=== PATIENT | female | born 1965 | race African-American/Black ===

== ENCOUNTER → 2017-06-24 | Outpatient (CLI) | payer BC ==
--- NOTE | 2017-06-28 08:18 | MM ---
Reason for exam: screening (asymptomatic). Last mammogram was performed 1 year ago. History: Patient is postmenopausal. Physical Findings: A clinical breast exam by your physician is recommended on an annual basis and results should be correlated with mammographic findings. MG 3D Screening Mammo W/Cad Bilateral CC and MLO view(s) were taken. Prior study comparison: June 09, 2016, bilateral MG screening mammo w CAD. The breast tissue is heterogeneously dense. This may lower the sensitivity of mammography. No significant changes when compared with prior studies. ASSESSMENT: Benign, BI-RAD 2 RECOMMENDATION: Routine screening mammogram of both breasts in 1 year.
== END | disposition home or self-care (01) ==
LOC: RADMAMWWP 07:14
PROVIDERS: ATTEND Obstetrics & Gynecology
DX: Z12.31 Encounter for screening mammogram for malignant neoplasm of breast (principal)
CPT/HCPCS: 77063; G0202

== ENCOUNTER → 2017-07-06 | Outpatient (CLI) | payer BC ==
--- NOTE | 2017-07-06 17:02 | XR ---
EXAMINATION TYPE: XR lumbosacral spine min 4V DATE OF EXAM: 07/06/2017 COMPARISON: NONE HISTORY: Back pain TECHNIQUE: 5 views FINDINGS: Vertebra have normal spacing and alignment. Posterior elements are intact. Sacroiliac joint s appear normal. There is no sign of compression fracture. IMPRESSION: Negative lumbar spine exam.
== END | disposition home or self-care (01) ==
LOC: RADXRMAIN 16:39
PROVIDERS: ATTEND Family Medicine
DX: M54.16 Radiculopathy, lumbar region (principal)
CPT/HCPCS: 72110

== ENCOUNTER → 2017-07-08 | Outpatient (CLI) | payer BC ==
--- NOTE | 2017-07-08 16:00 | ECHOS ---
STRESS ECHOCARDIOGRAM Date of Service: 07/08/2017 RESTING HEART RATE: 98 RESTING BLOOD PRESSURE: 129/81 MAXIMUM HEART RATE: 154 MAXIMUM BLOOD PRESSURE: 127/64 85% MPHR: 141 100% MPHR: 166 MAXIMUM STAGE REACHED: 3 TOTAL EXERCISE TIME: 7:00 METS ACHIEVED: 8.5 Mrs. Mo is a 52-year-old female being evaluated with symptoms of chest pain and palpitation and also family history. Baseline EKG showed a sinus rhythm with normal UT interval and QRS duration. Blood pressure at rest is 129/81 with pulse rate of 98. Patient walked on the Leonel protocol for 7 minutes achieving a maximum heart rate of 154 with a blood pressure of 127/64. EKG's taken during and after exercise showed mild upsloping ST segments in inferolateral leads up to about 1/2 to 1 mm. These changes were not associated with any chest pain. ECHO DATA: Baseline echo images show normal wall motion and thickening. Exercise echo images show augmentation of the wall motion and thickening in all the segments. FINAL IMPRESSION: 1. Borderline positive stress test based on the EKG abnormalities. 2. Negative stress echo. MMODL / IJN: [id number] /
== END | disposition home or self-care (01) ==
LOC: RADNMMAIN 09:06
PROVIDERS: ATTEND Family Medicine
DX: R07.9 Chest pain, unspecified (principal)
CPT/HCPCS: 93017; 93350

== ENCOUNTER → 2017-10-27 | Outpatient (CLI) | payer BC ==
--- NOTE | 2017-10-27 08:58 | US ---
EXAMINATION TYPE: US thyroid st tissue head/neck DATE OF EXAM: 10/27/2017 COMPARISON: CT neck October 08, 2017 CLINICAL HISTORY: R22.1 Localized Swelling, Mass And Lump, Neck. At area of right parotid gland is a mixed echogenicity, irregular shaped 1.4 x 1.0 x 1.1cm mass with no vascularity. Impression: Suspicious hypoechoic nodule deep in left parotid gland is not as well seen on CT due to dental artifact. Does not have ultrasound appearance of benign lymph node. Neoplasm cannot be exclude d. Consider further investigation with ultrasound guided fine-needle aspiration.
== END ==
LOC: RADUSWWP 08:12
PROVIDERS: ATTEND Family Medicine
DX: R22.1 Localized swelling, mass and lump, neck (principal)
CPT/HCPCS: 76536

== ENCOUNTER 2017-11-29 08:56 | Day surgery (SDC) | payer BC ==
[2017-11-29] MEDS ORDERED: ALPRAZolam 0.5 MG TAB PO STA (09:32)
[2017-11-29 10:14] VITALS: RESP 16; TEMP 97.8
[2017-11-29 11:01] VITALS: BP 132/70; PULSE 98
--- NOTE | 2017-11-29 11:40 | US ---
EXAMINATION TYPE: US fine needle aspiration DATE OF EXAM: 11/29/2017 COMPARISON: NONE HISTORY: Parotid nodule. Maximal barrier technique was utilized. After informed consent, skin overlying the lesion was locali zed with ultrasound and the overlying skin prepped and draped. Ultrasound was utilized using sterile technique. Lidocaine was used for local anesthesia. 3 passes with a 25-gauge needle were made into t he nodule and aspirated specimen was submitted to cytology. Following the procedure hemostasis achie halie. No immediate complication. The patient discharged in stable condition. IMPRESSION: STATUS POST ULTRASOUND GUIDED FINE NEEDLE ASPIRATION OF PAROTID NODULE, PATHOLOGY IS PEND ING. THIS PROCEDURE WAS PERFORMED BY THE UNDERSIGNED.
== END 2017-11-29 10:50 | disposition home or self-care (01) ==
LOC: RADPROMAIN 08:56
PROVIDERS: ATTEND Otolaryngology
DX: K11.8 Other diseases of salivary glands (principal)
CPT/HCPCS: 10022; 76942; 88173; 88305

== ENCOUNTER → 2018-07-04 | Outpatient (CLI) | payer BC ==
--- NOTE | 2018-07-04 14:45 | BD ---
EXAMINATION TYPE: Axial Bone Density DATE OF EXAM: 07/04/2018 COMPARISON: 2014 CLINICAL HISTORY: post menopausal Height: 5'1 Weight: 115 FRAX RISK QUESTIONS: Family History (Parent hip fracture): y Secondary Osteoporosis: RISK FACTORS HISTORY OF: Postmenopausal woman: y MEDICATIONS: Additional Medications: Sjogren syndrome Additional History: EXAM MEASUREMENTS: Bone mineral densitometry was performed using the [employer] System. Bone mineral density as measured about the Lumbar spine is: ----- L1-L4(G/cm2): 1.200 T Score Values are as follows: ----- L2: -0.1 ----- L3: 0.2 ----- L4: 0.3 ----- L1-L4: 0.2 Bone mineral density has: Decreased -0.3% since study of: 05/06/2015 Bone mineral density about the R hip (g/cm2): 0.837 Bone mineral density about the L hip (g/cm2): 0.954 T Score values are as follows: -----R Neck: -1.4 -----L Neck: -0.6 -----R Total: -0.8 -----L Total: -0.2 Bone mineral density has: Decreased -5.4% since study of: 05/06/2015 IMPRESSION: negative NOTE: T-SCORE=SD OF THE YOUNG ADULT MEAN.
--- NOTE | 2018-07-06 09:49 | MM ---
Reason for exam: screening (asymptomatic). Last mammogram was performed 1 year ago. History: Patient is postmenopausal. Physical Findings: A clinical breast exam by your physician is recommended on an annual basis and results should be correlated with mammographic findings. MG 3D Screening Mammo W/Cad Bilateral CC and MLO view(s) were taken. Prior study comparison: June 24, 2017, bilateral MG 3d screening mammo w/cad. June 22, 2016, right breast MG 3d work up w/cad RT. The breast tissue is heterogeneously dense. This may lower the sensitivity of mammography. Medial anterior left breast asymmetric density incompletely disperses on 3D image. ASSESSMENT: Incomplete: need additional imaging evaluation, BI-RAD 0 RECOMMENDATION: Special view mammogram of the left breast. If lesion persists on supplemental views, image directed ultrasound is recommended. [facility] will attempt to contact patient to return for supplemental views and ultrasound if indicated.
== END | disposition home or self-care (01) ==
LOC: RADBDWWP 07:19
PROVIDERS: ATTEND Family Medicine
DX: Z12.31 Encounter for screening mammogram for malignant neoplasm of breast (principal); Z13.820 Encounter for screening for osteoporosis; Z78.0 Asymptomatic menopausal state
CPT/HCPCS: 77063; 77067; 77080

== ENCOUNTER → 2019-07-31 | Outpatient (CLI) | payer BC ==
--- NOTE | 2019-07-31 14:37 | MM ---
Reason for exam: screening (asymptomatic). Last mammogram was performed 1 year and 1 month ago. History: Patient is postmenopausal. Physical Findings: A clinical breast exam by your physician is recommended on an annual basis and results should be correlated with mammographic findings. MG Screening Mammo w CAD Bilateral CC and MLO view(s) were taken. Prior study comparison: July 15, 2018, left breast MG 3d work up w/cad LT. July 04, 2018, bilateral MG 3d screening mammo w/cad. The breast tissue is heterogeneously dense. This may lower the sensitivity of mammography. Focal asymmetry left inner CC view, stable. No significant changes when compared with prior studies. ASSESSMENT: Benign, BI-RAD 2 RECOMMENDATION: Routine screening mammogram of both breasts in 1 year.
== END ==
LOC: RADMAMWWP 07:30
PROVIDERS: ATTEND Family Medicine
DX: Z12.31 Encounter for screening mammogram for malignant neoplasm of breast (principal)
CPT/HCPCS: 77067

== ENCOUNTER → 2019-11-22 | Outpatient (CLI) | payer BC ==
--- NOTE | 2019-11-22 15:43 | XR ---
Right wrist HISTORY: Pain for 3 weeks 4 views of the right wrist Bone mineralization, joint spaces and alignment are maintained. No fracture or dislocation. Question soft tissue swelling. IMPRESSION: No acute bone abnormality. Wrist MRI may be of benefit for persistent symptoms.
== END | disposition home or self-care (01) ==
LOC: RAD 12:37
PROVIDERS: ATTEND Family Medicine
DX: S63.501A Unspecified sprain of right wrist, initial encounter (principal)

== ENCOUNTER → 2020-07-24 | Outpatient (CLI) | payer BC ==
--- NOTE | 2020-07-24 08:21 | CT ---
EXAMINATION TYPE: CT brain wo/w con DATE OF EXAM: 07/24/2020 COMPARISON: CT brain December 09, 2016. HISTORY: [place] CT DLP: 1784.2 mGycm Automated exposure control for dose reduction was used. CONTRAST: CT scan of the head is performed without and with IV Contrast, patient injected with 100 mL of Isovue 300. FINDINGS: Noncontrast images show no acute intracranial hemorrhage or midline shift. The ventricles and sulci are within normal limits in size. Boyd-white matter differentiation is maintained. There is hypoplastic right frontal sinus. The globes are intact and the visualized sinuses are clear. Postcon trast images show no suspicious enhancing intraparenchymal mass. Stable positioning of the cerebellar tonsils minimally into foramen magnum without greater than 5 mm inferior descent. IMPRESSION: No new or acute findings are evident. No significant change from prior.
== END | disposition home or self-care (01) ==
LOC: RADCTMAIN 07:35
PROVIDERS: ATTEND Family Medicine
DX: R51 Headache (principal)
CPT/HCPCS: 70470; Q9967

== ENCOUNTER → 2020-08-29 | Outpatient (CLI) | payer BC ==
--- NOTE | 2020-08-30 12:24 | XR ---
EXAMINATION TYPE: XR cervical spine comp DATE OF EXAM: 08/29/2020 TECHNIQUE: Frontal, lateral, oblique, and open mouth view of the cervical spine are obtained. HISTORY: M25.512 PAIN SHOULDER M54.2 CERVICALGIA COMPARISON: CT neck 10/08/2017 FINDINGS: The cervical spine is visualized in its entirety from C1 thru the top of T1 level. There i s redemonstrated reversal of the upper cervical lordosis focused at the C3-C4 joint, unchanged from [address] comparison. There is maintained cervical lordosis of the inferior cervical spine. There is no evidence of acute fracture or dislocation. Vertebral body heights are normal. There is redemonstrated disc space narrowing and anterior/posterior osteophytic spurring at C4-C5, C5-C6. There is bony encr oachment of the neural foramina at C3-C4 on the right and multilevel involvement on the left. The pre -vertebral soft tissue appears within normal limits. The atlantoaxial relationship and base of the de ns is within normal limits on the open mouth view. IMPRESSION: 1. No acute fracture or dislocation is seen in the cervical spine. 2. Reversal of the cervical lordosis and degenerative changes as described above, redemonstrated fro 2016 CT comparison.
--- NOTE | 2020-08-30 12:48 | XR ---
EXAMINATION TYPE: XR shoulder complete LT DATE OF EXAM: 08/29/2020 CLINICAL HISTORY: Left arm and neck pain. Pain in left shoulder. Cervicalgia. TECHNIQUE: 4 views of the left shoulder are obtained. COMPARISON: . FINDINGS: There is no acute fracture/dislocation evident in the left shoulder. There is degenerativ e change with spurring of the acromioclavicular joint. The glenohumeral joint space appears within no rmal limits. Normal osseous mineralization. The visualized ribs are intact and unremarkable. IMPRESSION: 1. No acute fracture or dislocation in the left shoulder. 2. Spurring of the acromioclavicular joint.
== END | disposition home or self-care (01) ==
LOC: RAD 17:02
PROVIDERS: ATTEND Nurse Practitioner Family
DX: M47.892 Other spondylosis, cervical region (principal); M25.712 Osteophyte, left shoulder; M25.512 Pain in left shoulder; M54.2 Cervicalgia
CPT/HCPCS: 72050

== ENCOUNTER → 2020-09-30 | Outpatient (CLI) | payer BC ==
--- NOTE | 2020-09-30 16:29 | BD ---
EXAMINATION TYPE: Axial Bone Density DATE OF EXAM: 09/30/2020 COMPARISON: 07/04/2018 CLINICAL HISTORY: Height: 61 IN Weight: 127 LBS FRAX RISK QUESTIONS: Family History (Parent hip fracture): YES MOTHER Secondary Osteoporosis: 3. Menopause before 45: PARTIAL HYST AGE 35 RISK FACTORS HISTORY OF: Family History of Osteoporosis: YES MOTHER Active: YES Postmenopausal woman: PARTIAL HYST AGE 35 MEDICATIONS: Additional Medications: MULTI VIT, SJORGRENS SYNDROME MEDS, OMEPRAZOLE, SLEEPING PILL, FLEXERIL, ZYRT EC, VIT E, SINGULAIR EXAM MEASUREMENTS: Bone mineral densitometry was performed using the [employer] System. Bone mineral density as measured about the Lumbar spine is: ----- L1-L4(G/cm2): 1.146 T Score Values are as follows: ----- L2: -0.7 ----- L3: -0.1 ----- L4: -0.4 ----- L1-L4: -0.3 Bone mineral density has: Decreased -5.2% since study of: 07/04/2018 Bone mineral density about the R hip (g/cm2): 0.860 Bone mineral density about the L hip (g/cm2): 0.877 T Score values are as follows: -----R Neck: -1.3 -----L Neck: -1.2 -----R Total: -0.7 -----L Total: -0.4 Bone mineral density has: Decreased -0.8% since study of: 07/04/2018 IMPRESSION: Osteopenia (T Score between -2.5 and -1). There is slightly increased risk of fracture and the patient may be considered for treatment. Re-Screen 2-5 years. NOTE: T-SCORE=SD OF THE YOUNG ADULT MEAN.
--- NOTE | 2020-10-01 09:31 | MM ---
Reason for exam: screening (asymptomatic). Last mammogram was performed 1 year and 2 months ago. History: Patient is postmenopausal. Physical Findings: A clinical breast exam by your physician is recommended on an annual basis and results should be correlated with mammographic findings. MG 3D Screening Mammo W/Cad Bilateral CC and MLO view(s) were taken. Prior study comparison: July 31, 2019, bilateral MG screening mammo w CAD. July 15, 2018, left breast MG 3d work up w/cad LT. The breast tissue is heterogeneously dense. This may lower the sensitivity of mammography. Focal asymmetry upper inner middle third left breast. This finding is changed when compared with previous exams. ASSESSMENT: Incomplete: need additional imaging evaluation, BI-RAD 0 RECOMMENDATION: Special view mammogram of the left breast. If lesion persists on supplemental views, image directed ultrasound is recommended. [facility] will attempt to contact patient to return for supplemental views and ultrasound if indicated.
== END | disposition home or self-care (01) ==
LOC: RADBDWWP 07:19
PROVIDERS: ATTEND Family Medicine
DX: Z12.31 Encounter for screening mammogram for malignant neoplasm of breast (principal); M85.80 Other specified disorders of bone density and structure, unspecified site; Z78.0 Asymptomatic menopausal state
CPT/HCPCS: 77063; 77067; 77080

== ENCOUNTER → 2020-10-02 | Outpatient (CLI) | payer BC ==
--- NOTE | 2020-10-02 08:39 | MM ---
Reason for exam: additional evaluation requested from abnormal screening. Last mammogram was performed less than 1 month ago. History: Patient is postmenopausal. Physical Findings: Nurse did not find any significant physical abnormalities on exam. MG 3D Work Up W/Cad LT Spot compression CC and spot compression MLO view(s) were taken of the left breast. Prior study comparison: September 30, 2020, bilateral MG 3d screening mammo w/cad. July 31, 2019, bilateral MG screening mammo w CAD. The breast tissue is heterogeneously dense. This may lower the sensitivity of mammography. There is no discrete abnormality including area of concern. These results were verbally communicated with the patient and result sheet given to the patient on 10/02/20. ASSESSMENT: Negative, BI-RAD 1 RECOMMENDATION: Return to routine screening mammogram schedule for both breasts.
== END | disposition home or self-care (01) ==
LOC: RADMAMWWP 07:03
PROVIDERS: ATTEND Family Medicine
DX: R92.8 Other abnormal and inconclusive findings on diagnostic imaging of breast (principal)
CPT/HCPCS: 77061; 77065

== ENCOUNTER → 2021-12-16 | Outpatient (CLI) | payer BC ==
[2021-12-17 12:15] LABS: Coronavirus SARS CoV-2 Not Detected (Not Detected)
== END ==
LOC: LABWHC1 13:08
PROVIDERS: ATTEND Family Medicine
DX: J06.9 Acute upper respiratory infection, unspecified (principal)
CPT/HCPCS: U0003; C9803

== ENCOUNTER → 2022-02-18 | Outpatient (CLI) | payer BC ==
--- NOTE | 2022-02-19 12:59 | MM ---
Reason for exam: screening (asymptomatic). Last mammogram was performed 1 year and 5 months ago. History: Patient is postmenopausal. Physical Findings: A clinical breast exam by your physician is recommended on an annual basis and results should be correlated with mammographic findings. MG 3D Screening Mammo W/Cad Bilateral CC and MLO view(s) were taken. Prior study comparison: October 02, 2020, left breast MG 3d work up w/cad LT. September 30, 2020, bilateral MG 3d screening mammo w/cad. The breast tissue is heterogeneously dense. This may lower the sensitivity of mammography. There is no discrete abnormality. ASSESSMENT: Negative, BI-RAD 1 RECOMMENDATION: Routine screening mammogram of both breasts in 1 year.
== END | disposition home or self-care (01) ==
LOC: RADMAMWWP 07:19
PROVIDERS: ATTEND Family Medicine
DX: Z12.31 Encounter for screening mammogram for malignant neoplasm of breast (principal); Z78.0 Asymptomatic menopausal state
CPT/HCPCS: 77063; 77067

== ENCOUNTER → 2022-07-22 | Outpatient (CLI) | payer BC ==
--- NOTE | 2022-07-22 08:51 | CT ---
EXAMINATION TYPE: CT brain wo con DATE OF EXAM: 07/22/2022 COMPARISON: None available at this time INDICATION: Headache DLP: 1036.0 mGycm, Automated exposure control for dose reduction was used. CONTRAST: None CT of the brain is performed utilizing 3 mm thick sections through the posterior fossa and 3 mm thick sections through the remaining calvarium. Study is performed within 24 hours of [facility] to the [facility]. No abnormal hyperdensity is present to suggest an acute intracranial hemorrhage. No mass lesion is evident. No acute infarcts are evident. Ventricles and sulci are appropriate for the patient age. Paranasal sinuses and mastoid air cells within the [id number] are clear. IMPRESSIONS: 1. No acute intracranial process. MRI follow-up could be performed as clinically indicated.
== END | disposition home or self-care (01) ==
LOC: RADCTMAIN 07:37
PROVIDERS: ATTEND Family Medicine
DX: R51.9 Headache, unspecified (principal)
CPT/HCPCS: 70450

== ENCOUNTER → 2023-02-19 | Outpatient (CLI) | payer OTHER ==
--- NOTE | 2023-02-19 08:36 | BD ---
EXAMINATION TYPE: Axial Bone Density DATE OF EXAM: 02/19/2023 CLINICAL HISTORY: 57 years old Female. ICD-10 CODE: Z78.0 MENOPAUSAL STATE Height: 60.5in Weight: 128lb FRAX RISK QUESTIONS: Family History (Parent hip fracture): yes Secondary Osteoporosis: 3. Menopause before 45: yes RISK FACTORS HISTORY OF: Family History of Osteoporosis: yes Active: yes Postmenopausal woman: yes MEDICATIONS: Additional Medications: vitamin d, reflux med Additional History: EXAM MEASUREMENTS: Bone mineral densitometry was performed using the [employer] System. Bone mineral density as measured about the Lumbar spine is: ----- L1-L4(G/cm2): 1.126 T Score Values are as follows: ----- L1: -0.1 ----- L2: -0.6 ----- L3: 0.2 ----- L4: -1.2 ----- L1-L4: -0.4 Z Score Values are as follows: ----- L1: 0.6 ----- L2: 0.1 ----- L3: 0.9 ----- L4: -0.5 ----- L1-L4: 0.3 Bone mineral density has: Decreased -1.7% since study of: 09-30-20 Bone mineral density about the R hip (g/cm2): 0.922 Bone mineral density about the L hip (g/cm2): 0.948 T Score values are as follows: -----R Neck: -1.5 -----L Neck: -0.9 -----R Total: -0.7 -----L Total: -0.5 Z Score values are as follows: -----R Neck: -1.0 -----L Neck: -0.4 -----R Total: -0.6 -----L Total: -0.4 Bone mineral density has: unchanged 0.0% since study of: 09-30-20 FRAX%s: The graph provided illustrates a 7.1% chance for a major osteoporotic fx and a 0.3% chance fo r the hips probability for fx in 10 years time. IMPRESSION: Osteopenia (T Score between -2.5 and -1). There is slightly increased risk of fracture and the patient may be considered for treatment. Re-Screen 2-5 years. NOTE: T-SCORE=SD OF THE YOUNG ADULT MEAN.
--- NOTE | 2023-02-19 09:12 | MM ---
Reason for Exam: Screening (asymptomatic). Last screening mammogram was performed 12 month(s) ago. Patient History: Menarche at age 10. First Full-Term at age 23. Hysterectomy at age 35. Postmenopausal. Risk Values: Sylvie 5 year model risk: 1.4%. NCI Lifetime model risk: 7.1%. Prior Study Comparison: 09/30/2020 Bilateral Screening Mammogram, [facility]. 10/02/2020 Left Diagnostic Mammogram, [facility]. 02/18/2022 Bilateral Screening Mammogram, [facility]. Tissue Density: The breast tissue is heterogeneously dense. This may lower the sensitivity of mammography. Findings: Analyzed By CAD. There is no suspicious group of microcalcifications or new suspicious mass in either breast. Overall Assessment: Negative, BI-RAD 1 Management: Screening Mammogram of both breasts in 1 year. A clinical breast exam by your physician is recommended on an annual basis and results should be correlated with mammographic findings. Electronically signed and approved by: Carlos Bear D.O.
== END | disposition home or self-care (01) ==
LOC: RADBDWWP 07:55
PROVIDERS: ATTEND Family Medicine
DX: Z12.31 Encounter for screening mammogram for malignant neoplasm of breast (principal); M85.89 Other specified disorders of bone density and structure, multiple sites; Z78.0 Asymptomatic menopausal state
CPT/HCPCS: 77063; 77067; 77080

== ENCOUNTER → 2024-06-21 | Outpatient (CLI) | payer OTHER ==
--- NOTE | 2024-07-11 09:53 | MM ---
Reason for Exam: Screening (asymptomatic). Last mammogram was performed 1 year(s) and 4 month(s) ago. Patient History: Menarche at age 10. First Full-Term at age 23. Hysterectomy at age 35. Postmenopausal. Risk Values: Sylvie 5 year model risk: 1.6%. NCI Lifetime model risk: 8.1%. Prior Study Comparison: 10/02/2020 Left Diagnostic Mammogram, [facility]. 02/18/2022 Bilateral Screening Mammogram, [facility]. 02/19/2023 Bilateral MG 3D screening mammo w/cad, [facility]. Tissue Density: The breasts are heterogeneously dense, which may obscure small masses. Findings: Right breast: There is no suspicious group of microcalcifications or new suspicious mass. Left breast: There is no suspicious group of microcalcifications or new suspicious mass. Overall Assessment: Negative, BI-RAD 1 Management: Screening Mammogram of both breasts in [address] [facility] will attempt to contact patient to return for supplemental views and ultrasound if indicated. Patient should continue monthly self-breast exams. A clinical breast exam by your physician is recommended on an annual basis. This exam should not preclude additional follow-up of suspicious palpable abnormalities. Note on Sylvie scores and lifetime risk: 1. A Sylvie score greater than 3% is considered moderate risk. If this is the case, consider specialist referral to assess eligibility for a risk reducing agent. 2. If overall lifetime risk for the development of breast cancer is 20% or higher, the patient may qualify for future screening with alternating mammogram and breast MRI. Electronically signed and approved by: Gallo Chamberlain DO
== END | disposition home or self-care (01) ==
LOC: RADMAMWWP 12:00
PROVIDERS: ATTEND Family Medicine
DX: Z12.31 Encounter for screening mammogram for malignant neoplasm of breast
CPT/HCPCS: 77063; 77067